=== PATIENT | female | born 1935 | race Caucasian/White ===

== ENCOUNTER 2018-04-14 18:52 | Inpatient (IN) | payer MEDICARE, OTHER ==
[~2018-04-14] VITALS: Ht 157.5 cm; Wt 59.0 kg
[2018-04-14 20:13] LABS: BASOPHILS % (AUTO) 0.3 % (0-1); EOSINOPHILS # (AUTO) 0.1 X10'3 (0-0.9); EOSINOPHILS % (AUTO) 1.3 % (0-6); HEMATOCRIT 40.6 % (35.0-45.0); HEMOGLOBIN 13.4 g/dl (12.0-16.0); LYMPHOCYTES # (AUTO) 0.4 X10'3 (1.1-4.8); LYMPHOCYTES % (AUTO) 4.3 % (21-51); MEAN CORPUSCULAR HEMOGLOBIN 30.2 PG (27.0-31.0); MEAN CORPUSCULAR VOLUME 91.5 FL (78-98); MEAN PLATELET VOLUME 9.1 FL (7.4-10.4); MONOCYTES # (AUTO) 0.3 X10'3 (0-0.9); MONOCYTES % (AUTO) 3.7 % (2-12); NEUTROPHILS # (AUTO) 7.9 X10'3 (1.8-7.7); NEUTROPHILS % (AUTO) 90.4 % (42-75); PLATELET COUNT 226 X10'3 (140-440); RED BLOOD COUNT 4.44 X10'6 (4.20-5.60); RED CELL DISTRIBUTION WIDTH 14.8 % (11.5-14.5); WHITE BLOOD COUNT 8.8 X10'3 (4.5-11.0)
[2018-04-14] MEDS ORDERED: albuterol 2.5 MG/3 ML nebule CONTNEB PRN (20:20)
[2018-04-14] MEDS ORDERED: methylPREDNISolone sod succ 125mg/2ml vial IV ONE (20:20)
[2018-04-14 20:29] LABS: ALANINE AMINOTRANSFERASE 30 U/L (12-78); ALBUMIN/GLOBULIN RATIO 1.3 (1.1-1.5); ALKALINE PHOSPHATASE 55 IU/L (46-116); ANION GAP 11 (8-16); ASPARTATE AMINO TRANSFERASE 20 U/L (10-37); BILIRUBIN,TOTAL 0.8 MG/DL (0.1-1.0); BLOOD UREA NITROGEN 15 MG/DL (7-18); BUN/CREATININE RATIO 13.6 (6.6-38.0); CHLORIDE 104 MMOL/L (99-107); GLUCOSE 142 MG/DL (70-104); POTASSIUM 4.3 MMOL/L (3.5-5.1); SODIUM 142 MMOL/L (135-145); TOTAL CARBON DIOXIDE 26.8 MMOL/L (24-32); TOTAL PROTEIN 7.1 G/DL (6.4-8.2); eGFR 47 ML/MIN
[2018-04-14 20:31] LABS: INR 0.9 INR; PARTIAL THROMBOPLASTIN TIME 21 SECONDS (22-32); PROTHROMBIN TIME 9.6 SECONDS (9.0-12.0)
[2018-04-14] MEDS ORDERED: temazepam 15mg capsule PO PRN (21:00)
[2018-04-14 21:07] LABS: MAGNESIUM 2.1 MG/DL (1.5-2.4)
[2018-04-14 21:30] LABS: ABG BASE EXCESS 3.6 mmol/L (-2.0-3.0); ABG HCO3 27.3 mmol/L (22.0-26.0); ABG OXYGEN SATURATION 99.2 % (95-98); ABG PCO2 (T) 38.7 mmHg (32.0-45.0); ABG PH (T) 7.467 (7.350-7.450); ABG PO2 (T) 210.2 mmHg (83-108); ALLEN'S TEST Positive; FCOHb 0.3 % (0.5-1.5); FLOW 10 L/min; FMetHb 0.1 % (0.3-1.12); FO2Hb 98.8 % (94-100); PATIENT TEMPERATURE 37.3; TOTAL HEMOGLOBIN 13.2 G/dl (12.0-16.0)
[2018-04-14 21:59] LABS: CLARITY,URINE CLEAR (Clear); COLOR,URINE YELLOW (Yellow); GLUCOSE, URINE NEGATIVE (Neg); KETONES,URINE NEGATIVE (Neg); LEUKOCYTE ESTERASE ,URINE TRACE (Neg); NITRITES, URINE NEGATIVE (Neg); OCCULT BLOOD,URINE NEGATIVE (Neg); PH,URINE 6.5 (4.8-8.0); PROTEIN,URINE NEGATIVE (Neg); UROBILINOGEN,URINE 0.2 E.U/dL (0.2-1.0)
[2018-04-14 22:11] LABS: UA COLLECTION TYPE CLN CATCH MIDSTREAM
[2018-04-14 22:13] LABS: RBC,URINE NONE SEEN /HPF (0-2)
[2018-04-14 22:14] LABS: BACTERIA,URINE FEW /HPF (Neg); SQUAMOUS EPITHELIAL CELL,UR FEW /LPF (FEW); TRANSITIONAL EPI CELLS,URINE FEW /HPF; WBC CLUMPS,URINE FEW /HPF (NEGATIVE); WBC,URINE 0-4 /HPF (0-4)
[2018-04-14] MEDS ORDERED: LORazepam 2 mg/ml vial IV ONE (22:20)
[2018-04-14] MEDS ORDERED: PRED1TAB PO (22:38)
[2018-04-14] MEDS ORDERED: TIOT18CA3 (22:38)
[2018-04-14] MEDS ORDERED: ALB0.5UD IH (22:38)
[2018-04-14] MEDS ORDERED: BUDE10.2 INH (22:38)
[2018-04-14] MEDS ORDERED: DILT60CA2 (22:38)
[2018-04-14] MEDS ORDERED: OMEP20TA23 PO (22:38)
[2018-04-14] MEDS ORDERED: mag hydrox/Alum hydrox/simeth 30ml oral suspension PO STA (22:45)
[2018-04-14] MEDS ORDERED: HYDROcodone/acetaminophen 10/325mg tab PO PRN (23:05)
[2018-04-14] MEDS ORDERED: acetaminophen 325mg tablet PO PRN ×2 (23:05)
[2018-04-14] MEDS ORDERED: HYDROcodone/acetaminophen 5mg/325mg tablet PO PRN (23:05)
[2018-04-14 23:20] VITALS: BP 105/70
[2018-04-14] MEDS: normal saline 1000ml 1,000 ML IV SCH (23:59)
[2018-04-15] MEDS: mag hydrox/Alum hydrox/simeth 30ml oral suspension PO PRN ×2 (00:39→04:48)
[2018-04-15 04:30] VITALS: BP 148/88
[2018-04-15 06:43] LABS: ALBUMIN 3.1 G/DL (3.4-5.0); ANION GAP 10 (8-16); BLOOD UREA NITROGEN 16 MG/DL (7-18); BUN/CREATININE RATIO 17.2 (6.6-38.0); CALCIUM 8.4 MG/DL (8.5-10.1); CHLORIDE 105 MMOL/L (99-107); CREATININE 0.93 MG/DL (0.40-0.90); GLUCOSE 161 MG/DL (70-104); POTASSIUM 4.3 MMOL/L (3.5-5.1); SODIUM 143 MMOL/L (135-145); TOTAL CARBON DIOXIDE 28.3 MMOL/L (24-32); eGFR 58 ML/MIN
[2018-04-15 06:48] LABS: BASOPHILS % (AUTO) 0 % (0-1); EOSINOPHILS % (AUTO) 0.5 % (0-6); HEMATOCRIT 35.6 % (35.0-45.0); HEMOGLOBIN 11.8 g/dl (12.0-16.0); LYMPHOCYTES # (AUTO) 0.1 X10'3 (1.1-4.8); MEAN CORPUSCULAR HEMOGLOBIN 30.1 PG (27.0-31.0); MEAN CORPUSCULAR HGB CONC 33.1 % (33.0-36.5); MEAN CORPUSCULAR VOLUME 91.1 FL (78-98); MEAN PLATELET VOLUME 8.7 FL (7.4-10.4); MONOCYTES % (AUTO) 0.6 % (2-12); NEUTROPHILS # (AUTO) 6.9 X10'3 (1.8-7.7); NEUTROPHILS % (AUTO) 96.9 % (42-75); PLATELET COUNT 176 X10'3 (140-440); RED BLOOD COUNT 3.91 X10'6 (4.20-5.60); RED CELL DISTRIBUTION WIDTH 14.6 % (11.5-14.5); WHITE BLOOD COUNT 7.1 X10'3 (4.5-11.0)
[2018-04-15 07:00] VITALS: BP 128/69
[2018-04-15] MEDS: budesonide 0.5mg/2ml UD nebule IH SCH ×2 (07:11→19:50)
[2018-04-15] MEDS: albuterol 2.5 MG/3 ML nebule NEB SCH ×4 (07:11→19:50)
[2018-04-15] MEDS ORDERED: enoxaparin 40mg/0.4ml syringe SUBCUT SCH (08:00)
[2018-04-15] MEDS ORDERED: non-formulary drug (Budesonide/Formoterol Fumarate (Symbicort 160-4.5 Mcg Inhaler) 2 PUFFS INH SCH (08:00)
[2018-04-15] MEDS: azithromycin 250mg tablet PO SCH (09:07)
[2018-04-15] MEDS: pantoprazole 40mg Tablet.DR PO SCH (09:07)
[2018-04-15] MEDS: normal saline 1000ml 1,000 ML IV SCH (09:23)
[2018-04-15] MEDS ORDERED: pneumococcal 23-VAL P-sac vacc 25 mcg/0.5ml vial IMVAC ONE (10:00)
[2018-04-15 11:00] VITALS: BP 132/68
[2018-04-15 18:30] VITALS: BP 130/72
[2018-04-15] MEDS: methylPREDNISolone sod succ 125mg/2ml vial IV SCH (19:36)
[2018-04-15] MEDS: lactobacillus rhamnosus 10,000 MMU CELLS/CAPSULE PO SCH (19:37)
[2018-04-15] MEDS: diltiazem SR 60mg capsule (twice daily) PO SCH ×2 (19:43→21:49)
[2018-04-15 20:25] LABS: ABG OXYGEN SATURATION 98.4 % (95-98); ABG PCO2 (T) 78.3 mmHg (32.0-45.0); ABG PH (T) 7.154 (7.350-7.450); ABG PO2 (T) 144.8 mmHg (83-108); FCOHb 0.1 % (0.5-1.5); FMetHb 0.4 % (0.3-1.12); FO2Hb 97.9 % (94-100); PATIENT TEMPERATURE 36.7; RESPIRATORY RATE (OBSERVED) 24 b/min; TOTAL HEMOGLOBIN 14.7 G/dl (12.0-16.0)
[2018-04-15 20:31] LABS: BASOPHILS % (AUTO) 0.2 % (0-1); EOSINOPHILS # (AUTO) 0.1 X10'3 (0-0.9); EOSINOPHILS % (AUTO) 0.8 % (0-6); HEMATOCRIT 42.3 % (35.0-45.0); HEMOGLOBIN 13.9 g/dl (12.0-16.0); LYMPHOCYTES # (AUTO) 0.8 X10'3 (1.1-4.8); LYMPHOCYTES % (AUTO) 5.4 % (21-51); MEAN CORPUSCULAR HGB CONC 32.9 % (33.0-36.5); MEAN CORPUSCULAR VOLUME 91.4 FL (78-98); MEAN PLATELET VOLUME 8.4 FL (7.4-10.4); MONOCYTES # (AUTO) 1.1 X10'3 (0-0.9); MONOCYTES % (AUTO) 6.9 % (2-12); NEUTROPHILS # (AUTO) 13.3 X10'3 (1.8-7.7); NEUTROPHILS % (AUTO) 86.7 % (42-75); PLATELET COUNT 236 X10'3 (140-440); RED BLOOD COUNT 4.63 X10'6 (4.20-5.60); RED CELL DISTRIBUTION WIDTH 14.7 % (11.5-14.5); WHITE BLOOD COUNT 15.4 X10'3 (4.5-11.0)
[2018-04-15 20:41] LABS: ABG HCO3 22.3 mmol/L (22.0-26.0); ABG OXYGEN SATURATION 99.4 % (95-98); ABG PCO2 (T) 44.2 mmHg (32.0-45.0); ABG PH (T) 7.318 (7.350-7.450); ABG PO2 (T) 269.3 mmHg (83-108); FCOHb 0.3 % (0.5-1.5); FMetHb 0.2 % (0.3-1.12); FO2Hb 98.9 % (94-100); PATIENT TEMPERATURE 36.7; RESPIRATORY RATE 18 b/min; RESPIRATORY RATE (OBSERVED) 21 b/min; TOTAL HEMOGLOBIN 14.1 G/dl (12.0-16.0)
[2018-04-15 20:54] LABS: ALBUMIN 3.7 G/DL (3.4-5.0); ANION GAP 12 (8-16); BLOOD UREA NITROGEN 18 MG/DL (7-18); BUN/CREATININE RATIO 15.1 (6.6-38.0); CALCIUM 8.4 MG/DL (8.5-10.1); CHLORIDE 105 MMOL/L (99-107); CREATININE 1.19 MG/DL (0.40-0.90); GLUCOSE 171 MG/DL (70-104); POTASSIUM 5.5 MMOL/L (3.5-5.1); SODIUM 143 MMOL/L (135-145); TOTAL CARBON DIOXIDE 25.9 MMOL/L (24-32); TROPONIN I 0.04 NG/ML (0.0-0.05); eGFR 43 ML/MIN
[2018-04-15] MEDS ORDERED: LORazepam 2 mg/ml vial IM ONE (21:35)
[2018-04-16] VITALS (9 sets, daily range): BP systolic 123–160; BP diastolic 70–99
[2018-04-16] MEDS ORDERED: LORazepam 2 mg/ml vial IV ONE ×2 (01:05→06:30)
[2018-04-16 07:04] LABS: BASOPHILS # (AUTO) 0.1 X10'3 (0-0.2); BASOPHILS % (AUTO) 0.3 % (0-1); EOSINOPHILS # (AUTO) 0.3 X10'3 (0-0.9); EOSINOPHILS % (AUTO) 1.7 % (0-6); HEMATOCRIT 39.9 % (35.0-45.0); HEMOGLOBIN 13.2 g/dl (12.0-16.0); LYMPHOCYTES # (AUTO) 0.2 X10'3 (1.1-4.8); LYMPHOCYTES % (AUTO) 1.4 % (21-51); MEAN CORPUSCULAR HEMOGLOBIN 30.2 PG (27.0-31.0); MEAN CORPUSCULAR HGB CONC 33.1 % (33.0-36.5); MEAN CORPUSCULAR VOLUME 91.4 FL (78-98); MONOCYTES # (AUTO) 0.6 X10'3 (0-0.9); MONOCYTES % (AUTO) 3.7 % (2-12); NEUTROPHILS # (AUTO) 16.4 X10'3 (1.8-7.7); NEUTROPHILS % (AUTO) 92.9 % (42-75); PLATELET COUNT 243 X10'3 (140-440); RED BLOOD COUNT 4.37 X10'6 (4.20-5.60); RED CELL DISTRIBUTION WIDTH 14.7 % (11.5-14.5); WHITE BLOOD COUNT 17.7 X10'3 (4.5-11.0)
[2018-04-16 07:16] LABS: ALBUMIN 3.5 G/DL (3.4-5.0); ANION GAP 9 (8-16); BLOOD UREA NITROGEN 20 MG/DL (7-18); BUN/CREATININE RATIO 20.6 (6.6-38.0); CALCIUM 8.7 MG/DL (8.5-10.1); CHLORIDE 104 MMOL/L (99-107); CREATININE 0.97 MG/DL (0.40-0.90); GLUCOSE 171 MG/DL (70-104); POTASSIUM 4.4 MMOL/L (3.5-5.1); SODIUM 141 MMOL/L (135-145); TOTAL CARBON DIOXIDE 27.6 MMOL/L (24-32); eGFR 55 ML/MIN
[2018-04-16] MEDS: budesonide 0.5mg/2ml UD nebule IH SCH ×2 (07:39→19:12)
[2018-04-16] MEDS: albuterol 2.5 MG/3 ML nebule NEB SCH ×4 (07:39→19:12)
[2018-04-16] MEDS: pantoprazole 40mg Tablet.DR PO SCH (08:00)
[2018-04-16] MEDS: lactobacillus rhamnosus 10,000 MMU CELLS/CAPSULE PO SCH ×2 (08:00→20:50)
[2018-04-16] MEDS: azithromycin 250mg tablet PO SCH (08:00)
[2018-04-16] MEDS: diltiazem SR 60mg capsule (twice daily) PO SCH (08:00)
[2018-04-16] MEDS: methylPREDNISolone sod succ 125mg/2ml vial IV SCH ×2 (08:25→20:44)
[2018-04-16] MEDS: enoxaparin 30mg/0.3ml syringe SUBCUT SCH (08:26)
[2018-04-16 10:15] LABS: ABG BASE EXCESS 0.4 mmol/L (-2.0-3.0); ABG HCO3 27.1 mmol/L (22.0-26.0); ABG OXYGEN SATURATION 98.1 % (95-98); ABG PCO2 (T) 51.3 mmHg (32.0-45.0); ABG PO2 (T) 110.5 mmHg (83-108); FCOHb 0.3 % (0.5-1.5); FMetHb 0.2 % (0.3-1.12); FO2Hb 97.6 % (94-100); RESPIRATORY RATE 16 b/min; RESPIRATORY RATE (OBSERVED) 25 b/min; TOTAL HEMOGLOBIN 14.5 G/dl (12.0-16.0)
[2018-04-16] MEDS: pantoprazole 40 MG vial IV SCH (10:49)
[2018-04-16] MEDS: diltiazem 5mg/ml 5ml inj. IV SCH ×3 (10:49→20:46)
[2018-04-16] MEDS: morphine 10mg/0.5ml (conc. morphine) oral syringe PO PRN ×5 (11:29→23:59)
[2018-04-17] VITALS (13 sets, daily range): BP systolic 123–147; BP diastolic 66–98
[2018-04-17] MEDS: albuterol 2.5 MG/3 ML nebule NEB PRN (01:28)
[2018-04-17] MEDS: LORazepam 2 mg/ml vial IV PRN ×2 (01:32→15:24)
[2018-04-17] MEDS: diltiazem 5mg/ml 5ml inj. IV SCH ×4 (02:19→19:54)
[2018-04-17 06:49] LABS: BASOPHILS % (AUTO) 0 % (0-1); EOSINOPHILS # (AUTO) 0.3 X10'3 (0-0.9); EOSINOPHILS % (AUTO) 1.9 % (0-6); HEMATOCRIT 38.2 % (35.0-45.0); HEMOGLOBIN 12.8 g/dl (12.0-16.0); LYMPHOCYTES # (AUTO) 0.2 X10'3 (1.1-4.8); LYMPHOCYTES % (AUTO) 1.6 % (21-51); MEAN CORPUSCULAR HEMOGLOBIN 30.3 PG (27.0-31.0); MEAN CORPUSCULAR HGB CONC 33.5 % (33.0-36.5); MEAN CORPUSCULAR VOLUME 90.3 FL (78-98); MEAN PLATELET VOLUME 8.8 FL (7.4-10.4); MONOCYTES # (AUTO) 0.8 X10'3 (0-0.9); MONOCYTES % (AUTO) 5.5 % (2-12); PLATELET COUNT 203 X10'3 (140-440); RED BLOOD COUNT 4.22 X10'6 (4.20-5.60); RED CELL DISTRIBUTION WIDTH 14.3 % (11.5-14.5); WHITE BLOOD COUNT 14.3 X10'3 (4.5-11.0)
[2018-04-17 06:56] LABS: ALBUMIN 2.9 G/DL (3.4-5.0); ANION GAP 6 (8-16); BLOOD UREA NITROGEN 23 MG/DL (7-18); BUN/CREATININE RATIO 29.1 (6.6-38.0); CALCIUM 8.3 MG/DL (8.5-10.1); CHLORIDE 106 MMOL/L (99-107); CREATININE 0.79 MG/DL (0.40-0.90); GLUCOSE 151 MG/DL (70-104); POTASSIUM 4.4 MMOL/L (3.5-5.1); SODIUM 143 MMOL/L (135-145); TOTAL CARBON DIOXIDE 30.6 MMOL/L (24-32); eGFR 70 ML/MIN
[2018-04-17] MEDS: albuterol 2.5 MG/3 ML nebule NEB SCH (07:26)
[2018-04-17] MEDS: budesonide 0.5mg/2ml UD nebule IH SCH ×2 (07:26→20:11)
[2018-04-17] MEDS: lactobacillus rhamnosus 10,000 MMU CELLS/CAPSULE PO SCH ×2 (07:28→19:54)
[2018-04-17] MEDS: pantoprazole 40 MG vial IV SCH (07:34)
[2018-04-17] MEDS: methylPREDNISolone sod succ 125mg/2ml vial IV SCH ×2 (07:35→19:54)
[2018-04-17] MEDS: enoxaparin 30mg/0.3ml syringe SUBCUT SCH (07:35)
[2018-04-17] MEDS: normal saline 1000ml 1,000 ML IV SCH ×2 (10:33→19:55)
[2018-04-17] MEDS: ipratropium/albuterol 3ml nebule NEB SCH ×2 (15:30→20:11)
[2018-04-17 20:41] LABS: ABG BASE EXCESS 4.1 mmol/L (-2.0-3.0); ABG HCO3 28.2 mmol/L (22.0-26.0); ABG OXYGEN SATURATION 96.8 % (95-98); ABG PCO2 (T) 40.1 mmHg (32.0-45.0); ABG PH (T) 7.465 (7.350-7.450); ABG PO2 (T) 83.3 mmHg (83-108); ALLEN'S TEST Positive; FCOHb 0.6 % (0.5-1.5); FMetHb 0.1 % (0.3-1.12); FO2Hb 96.1 % (94-100); MINUTE VOLUME 11 L/min; PATIENT TEMPERATURE 36.9; RESPIRATORY RATE 16 b/min; RESPIRATORY RATE (OBSERVED) 16 b/min; TOTAL HEMOGLOBIN 13.5 G/dl (12.0-16.0)
[2018-04-18] VITALS (11 sets, daily range): BP systolic 109–158; BP diastolic 72–103
[2018-04-18] MEDS: LORazepam 2 mg/ml vial IV PRN ×3 (00:07→21:02)
[2018-04-18] MEDS: diltiazem 5mg/ml 5ml inj. IV SCH ×4 (02:00→20:34)
[2018-04-18] MEDS: ipratropium/albuterol 3ml nebule NEB SCH ×4 (02:18→20:39)
[2018-04-18] MEDS: normal saline 1000ml 1,000 ML IV SCH ×3 (05:56→18:57)
[2018-04-18 05:58] LABS: ALBUMIN 2.6 G/DL (3.4-5.0); ANION GAP 8 (8-16); BLOOD UREA NITROGEN 26 MG/DL (7-18); BUN/CREATININE RATIO 36.6 (6.6-38.0); CALCIUM 7.8 MG/DL (8.5-10.1); CHLORIDE 108 MMOL/L (99-107); CREATININE 0.71 MG/DL (0.40-0.90); GLUCOSE 140 MG/DL (70-104); POTASSIUM 4.1 MMOL/L (3.5-5.1); SODIUM 145 MMOL/L (135-145); TOTAL CARBON DIOXIDE 29.3 MMOL/L (24-32); eGFR 79 ML/MIN
[2018-04-18 07:38] LABS: HEMOGLOBIN 12.4 g/dl (12.0-16.0); RED BLOOD COUNT 3.95 X10'6 (4.20-5.60); WHITE BLOOD COUNT 10.9 X10'3 (4.5-11.0)
[2018-04-18 07:39] LABS: BASOPHILS % (AUTO) 0.2 % (0-1); EOSINOPHILS % (AUTO) 0 % (0-6); HEMATOCRIT 36.2 % (35.0-45.0); LYMPHOCYTES # (AUTO) 0.2 X10'3 (1.1-4.8); LYMPHOCYTES % (AUTO) 1.8 % (21-51); MEAN CORPUSCULAR HEMOGLOBIN 31.5 PG (27.0-31.0); MONOCYTES # (AUTO) 0.3 X10'3 (0-0.9); MONOCYTES % (AUTO) 3.1 % (2-12); NEUTROPHILS # (AUTO) 10.4 X10'3 (1.8-7.7); NEUTROPHILS % (AUTO) 94.9 % (42-75); PLATELET COUNT 157 X10'3 (140-440); RED CELL DISTRIBUTION WIDTH 13.3 % (11.5-14.5)
[2018-04-18 07:40] LABS: MEAN CORPUSCULAR HGB CONC 34.4 % (33.0-36.5); MEAN CORPUSCULAR VOLUME 91.5 FL (78-98)
[2018-04-18] MEDS: pantoprazole 40 MG vial IV SCH (07:53)
[2018-04-18] MEDS: budesonide 0.5mg/2ml UD nebule IH SCH ×2 (07:53→20:40)
[2018-04-18] MEDS: methylPREDNISolone sod succ 125mg/2ml vial IV SCH ×2 (07:56→20:34)
[2018-04-18] MEDS: enoxaparin 30mg/0.3ml syringe SUBCUT SCH (07:58)
[2018-04-18] MEDS: lactobacillus rhamnosus 10,000 MMU CELLS/CAPSULE PO SCH ×2 (08:00→20:32)
[2018-04-18] MEDS: albuterol 2.5 MG/3 ML nebule NEB PRN (12:46)
[2018-04-18] MEDS: Protein Shake (high protein) 240ml (8oz) cup PO SCH ×2 (13:00→18:02)
[2018-04-18] MEDS ORDERED: lactose-reduced food (Ensure Enlive) - 237ml bottle PO SCH (18:00)
[2018-04-18] MEDS: doxycycline inj 100 MG in normal saline 100ml IV soln 100 ML IV SCH ×2 (18:57→19:04)
[2018-04-19] MEDS: ipratropium/albuterol 3ml nebule NEB SCH ×4 (01:55→21:32)
[2018-04-19 02:00] VITALS: BP 148/99
[2018-04-19] MEDS: diltiazem 5mg/ml 5ml inj. IV SCH ×3 (02:00→14:22)
[2018-04-19] MEDS: morphine 10mg/0.5ml (conc. morphine) oral syringe PO PRN ×2 (05:38→20:42)
[2018-04-19 06:00] VITALS: BP 155/108
[2018-04-19] MEDS: LORazepam 2 mg/ml vial IV PRN ×2 (06:55→16:22)
[2018-04-19] MEDS: normal saline 1000ml 1,000 ML IV SCH (06:56)
[2018-04-19 07:00] LABS: BASOPHILS % (AUTO) 0.2 % (0-1); EOSINOPHILS % (AUTO) 0.1 % (0-6); HEMATOCRIT 38.1 % (35.0-45.0); HEMOGLOBIN 13.2 g/dl (12.0-16.0); LYMPHOCYTES # (AUTO) 0.2 X10'3 (1.1-4.8); LYMPHOCYTES % (AUTO) 1.4 % (21-51); MEAN CORPUSCULAR HEMOGLOBIN 31.1 PG (27.0-31.0); MEAN CORPUSCULAR HGB CONC 34.6 % (33.0-36.5); MEAN PLATELET VOLUME 9.3 FL (7.4-10.4); MONOCYTES # (AUTO) 0.4 X10'3 (0-0.9); MONOCYTES % (AUTO) 3.3 % (2-12); NEUTROPHILS # (AUTO) 10.3 X10'3 (1.8-7.7); PLATELET COUNT 166 X10'3 (140-440); RED BLOOD COUNT 4.23 X10'6 (4.20-5.60); RED CELL DISTRIBUTION WIDTH 13.3 % (11.5-14.5); WHITE BLOOD COUNT 10.9 X10'3 (4.5-11.0)
[2018-04-19 07:15] LABS: ALBUMIN 2.7 G/DL (3.4-5.0); ANION GAP 8 (8-16); BLOOD UREA NITROGEN 26 MG/DL (7-18); BUN/CREATININE RATIO 35.6 (6.6-38.0); CALCIUM 8.1 MG/DL (8.5-10.1); CHLORIDE 110 MMOL/L (99-107); CREATININE 0.73 MG/DL (0.40-0.90); GLUCOSE 157 MG/DL (70-104); POTASSIUM 3.8 MMOL/L (3.5-5.1); SODIUM 146 MMOL/L (135-145); TOTAL CARBON DIOXIDE 27.8 MMOL/L (24-32); eGFR 76 ML/MIN
[2018-04-19] MEDS: Protein Shake (high protein) 240ml (8oz) cup PO SCH ×3 (07:56→18:36)
[2018-04-19] MEDS: methylPREDNISolone sod succ 125mg/2ml vial IV SCH ×2 (08:02→19:52)
[2018-04-19] MEDS: pantoprazole 40 MG vial IV SCH (08:04)
[2018-04-19] MEDS: doxycycline inj 100 MG in normal saline 100ml IV soln 100 ML IV SCH ×2 (08:06→19:52)
[2018-04-19] MEDS: lactobacillus rhamnosus 10,000 MMU CELLS/CAPSULE PO SCH ×2 (08:08→19:52)
[2018-04-19] MEDS: enoxaparin 40mg/0.4ml syringe SUBCUT SCH (08:08)
[2018-04-19] MEDS: budesonide 0.5mg/2ml UD nebule IH SCH ×2 (09:16→21:32)
[2018-04-19 11:00] VITALS: BP 134/89
[2018-04-19] MEDS: lactose-reduced food (Ensure Enlive) - 237ml bottle PO SCH ×2 (13:00→18:00)
[2018-04-19 15:00] VITALS: BP 126/85
[2018-04-19] MEDS: montelukast 10mg tablet PO SCH (16:58)
[2018-04-19] MEDS: loratadine 10mg tablet PO SCH (16:58)
[2018-04-19 19:00] VITALS: BP 128/74
[2018-04-19] MEDS: diltiazem SR 60mg capsule (twice daily) PO SCH (19:52)
[2018-04-19 23:00] VITALS: BP 143/89
[2018-04-20] MEDS: mag hydrox/Alum hydrox/simeth 30ml oral suspension PO PRN ×2 (00:15→21:44)
[2018-04-20 03:00] VITALS: BP 115/76
[2018-04-20] MEDS: ipratropium/albuterol 3ml nebule NEB SCH ×4 (03:01→20:20)
[2018-04-20] MEDS: LORazepam 2 mg/ml vial IV PRN ×3 (03:55→21:08)
[2018-04-20 06:00] VITALS: BP 108/81
[2018-04-20] MEDS: loratadine 10mg tablet PO SCH (07:44)
[2018-04-20] MEDS: diltiazem SR 60mg capsule (twice daily) PO SCH ×2 (07:44→19:57)
[2018-04-20] MEDS: doxycycline inj 100 MG in normal saline 100ml IV soln 100 ML IV SCH ×2 (07:44→19:57)
[2018-04-20] MEDS: lactobacillus rhamnosus 10,000 MMU CELLS/CAPSULE PO SCH ×2 (07:44→19:57)
[2018-04-20] MEDS: montelukast 10mg tablet PO SCH (07:44)
[2018-04-20] MEDS: budesonide 0.5mg/2ml UD nebule IH SCH ×2 (07:45→20:20)
[2018-04-20] MEDS: enoxaparin 40mg/0.4ml syringe SUBCUT SCH (07:46)
[2018-04-20] MEDS: pantoprazole 40 MG vial IV SCH (07:46)
[2018-04-20] MEDS: methylPREDNISolone sod succ 125mg/2ml vial IV SCH ×2 (07:46→19:57)
[2018-04-20] MEDS: Protein Shake (high protein) 240ml (8oz) cup PO SCH ×3 (07:46→18:41)
[2018-04-20] MEDS: lactose-reduced food (Ensure Enlive) - 237ml bottle PO SCH ×3 (08:00→18:41)
[2018-04-20 10:21] LABS: ALANINE AMINOTRANSFERASE 45 U/L (12-78); ALBUMIN 2.7 G/DL (3.4-5.0); ALBUMIN/GLOBULIN RATIO 0.9 (1.1-1.5); ALKALINE PHOSPHATASE 52 IU/L (46-116); ANION GAP 9 (8-16); ASPARTATE AMINO TRANSFERASE 19 U/L (10-37); BLOOD UREA NITROGEN 26 MG/DL (7-18); BUN/CREATININE RATIO 34.7 (6.6-38.0); CALCIUM 7.9 MG/DL (8.5-10.1); CHLORIDE 109 MMOL/L (99-107); CREATININE 0.75 MG/DL (0.40-0.90); GLUCOSE 210 MG/DL (70-104); SODIUM 145 MMOL/L (135-145); TOTAL CARBON DIOXIDE 26.8 MMOL/L (24-32); TOTAL PROTEIN 5.6 G/DL (6.4-8.2); eGFR 74 ML/MIN
[2018-04-20 10:56] LABS: BASOPHILS % (AUTO) 0.1 % (0-1); EOSINOPHILS % (AUTO) 0 % (0-6); HEMATOCRIT 39.5 % (35.0-45.0); HEMOGLOBIN 13.7 g/dl (12.0-16.0); LYMPHOCYTES # (AUTO) 0.1 X10'3 (1.1-4.8); LYMPHOCYTES % (AUTO) 0.7 % (21-51); MEAN CORPUSCULAR HEMOGLOBIN 31.1 PG (27.0-31.0); MEAN CORPUSCULAR HGB CONC 34.6 % (33.0-36.5); MEAN CORPUSCULAR VOLUME 89.8 FL (78-98); MEAN PLATELET VOLUME 9.4 FL (7.4-10.4); MONOCYTES # (AUTO) 0.6 X10'3 (0-0.9); MONOCYTES % (AUTO) 5.1 % (2-12); NEUTROPHILS # (AUTO) 11.4 X10'3 (1.8-7.7); NEUTROPHILS % (AUTO) 94.1 % (42-75); PLATELET COUNT 182 X10'3 (140-440); RED BLOOD COUNT 4.39 X10'6 (4.20-5.60); RED CELL DISTRIBUTION WIDTH 13.8 % (11.5-14.5); WHITE BLOOD COUNT 12.1 X10'3 (4.5-11.0)
[2018-04-20 11:00] VITALS: BP 131/86
[2018-04-20 15:00] VITALS: BP 117/89
[2018-04-20] MEDS: albuterol 2.5 MG/3 ML nebule NEB PRN (17:31)
[2018-04-20 19:00] VITALS: BP 131/70
[2018-04-20] MEDS: morphine 10mg/0.5ml (conc. morphine) oral syringe PO PRN (19:57)
[2018-04-20 23:00] VITALS: BP 135/85
[2018-04-21] MEDS: ipratropium/albuterol 3ml nebule NEB SCH ×4 (02:42→20:18)
[2018-04-21 03:00] VITALS: BP 120/69
[2018-04-21 07:00] VITALS: BP 120/85
[2018-04-21] MEDS: Protein Shake (high protein) 240ml (8oz) cup PO SCH ×3 (08:00→18:41)
[2018-04-21] MEDS: budesonide 0.5mg/2ml UD nebule IH SCH ×2 (08:00→20:18)
[2018-04-21] MEDS: LORazepam 2 mg/ml vial IV PRN ×3 (08:35→22:10)
[2018-04-21] MEDS: pantoprazole 40 MG vial IV SCH (08:39)
[2018-04-21] MEDS: methylPREDNISolone sod succ 125mg/2ml vial IV SCH ×2 (08:46→20:30)
[2018-04-21] MEDS: montelukast 10mg tablet PO SCH (08:50)
[2018-04-21] MEDS: loratadine 10mg tablet PO SCH (08:51)
[2018-04-21] MEDS: diltiazem SR 60mg capsule (twice daily) PO SCH ×2 (08:51→20:30)
[2018-04-21] MEDS: lactobacillus rhamnosus 10,000 MMU CELLS/CAPSULE PO SCH ×2 (08:51→20:30)
[2018-04-21] MEDS: enoxaparin 40mg/0.4ml syringe SUBCUT SCH (08:53)
[2018-04-21] MEDS: lactose-reduced food (Ensure Enlive) - 237ml bottle PO SCH ×3 (08:56→18:41)
[2018-04-21] MEDS: doxycycline inj 100 MG in normal saline 100ml IV soln 100 ML IV SCH ×2 (08:59→20:30)
[2018-04-21 11:00] VITALS: BP 119/74
[2018-04-21 15:00] VITALS: BP 133/85
[2018-04-21] MEDS: magnesium hydroxide 30ml (MOM) UD suspension PO PRN (18:41)
[2018-04-21 19:00] VITALS: BP 137/81
[2018-04-21 22:10] LABS: ABG BASE EXCESS 3.8 mmol/L (-2.0-3.0); ABG HCO3 28.2 mmol/L (22.0-26.0); ABG OXYGEN SATURATION 94.7 % (95-98); ABG PH (T) 7.453 (7.350-7.450); ABG PO2 (T) 66.2 mmHg (83-108); ALLEN'S TEST Positive; FCOHb 0.5 % (0.5-1.5); FLOW 3 L/min; FMetHb 0.1 % (0.3-1.12); FO2Hb 94.1 % (94-100); PATIENT TEMPERATURE 36.5; TOTAL HEMOGLOBIN 13.9 G/dl (12.0-16.0)
[2018-04-21 23:00] VITALS: BP 130/85
[2018-04-22] MEDS: ipratropium/albuterol 3ml nebule NEB SCH ×4 (02:33→20:49)
[2018-04-22 03:00] VITALS: BP 134/75
[2018-04-22] MEDS: LORazepam 2 mg/ml vial IV PRN ×2 (04:14→13:05)
[2018-04-22 05:31] LABS: ALBUMIN 2.7 G/DL (3.4-5.0); ANION GAP 7 (8-16); BLOOD UREA NITROGEN 26 MG/DL (7-18); BUN/CREATININE RATIO 35.6 (6.6-38.0); CALCIUM 8.6 MG/DL (8.5-10.1); CHLORIDE 108 MMOL/L (99-107); CREATININE 0.73 MG/DL (0.40-0.90); GLUCOSE 174 MG/DL (70-104); POTASSIUM 4.4 MMOL/L (3.5-5.1); SODIUM 145 MMOL/L (135-145); TOTAL CARBON DIOXIDE 30.3 MMOL/L (24-32); eGFR 76 ML/MIN
[2018-04-22 05:35] LABS: BASOPHILS % (AUTO) 0 % (0-1); EOSINOPHILS % (AUTO) 0 % (0-6); HEMATOCRIT 40.1 % (35.0-45.0); HEMOGLOBIN 13.7 g/dl (12.0-16.0); LYMPHOCYTES # (AUTO) 0.1 X10'3 (1.1-4.8); LYMPHOCYTES % (AUTO) 0.6 % (21-51); MEAN CORPUSCULAR HEMOGLOBIN 31.1 PG (27.0-31.0); MEAN CORPUSCULAR VOLUME 91.4 FL (78-98); MEAN PLATELET VOLUME 9.9 FL (7.4-10.4); MONOCYTES # (AUTO) 0.5 X10'3 (0-0.9); NEUTROPHILS # (AUTO) 16.7 X10'3 (1.8-7.7); NEUTROPHILS % (AUTO) 96.4 % (42-75); PLATELET COUNT 175 X10'3 (140-440); RED BLOOD COUNT 4.39 X10'6 (4.20-5.60); RED CELL DISTRIBUTION WIDTH 13.6 % (11.5-14.5); WHITE BLOOD COUNT 17.3 X10'3 (4.5-11.0)
[2018-04-22 06:00] VITALS: BP 132/78
[2018-04-22] MEDS: budesonide 0.5mg/2ml UD nebule IH SCH ×2 (07:40→20:49)
[2018-04-22] MEDS: Protein Shake (high protein) 240ml (8oz) cup PO SCH ×3 (08:00→18:00)
[2018-04-22] MEDS: lactose-reduced food (Ensure Enlive) - 237ml bottle PO SCH ×4 (08:00→15:00)
[2018-04-22] MEDS: diltiazem SR 60mg capsule (twice daily) PO SCH ×2 (08:03→20:58)
[2018-04-22] MEDS: loratadine 10mg tablet PO SCH (08:03)
[2018-04-22] MEDS: montelukast 10mg tablet PO SCH (08:03)
[2018-04-22] MEDS: pantoprazole 40 MG vial IV SCH (08:03)
[2018-04-22] MEDS: methylPREDNISolone sod succ 125mg/2ml vial IV SCH ×2 (08:03→20:58)
[2018-04-22] MEDS: lactobacillus rhamnosus 10,000 MMU CELLS/CAPSULE PO SCH ×2 (08:03→20:58)
[2018-04-22] MEDS: doxycycline inj 100 MG in normal saline 100ml IV soln 100 ML IV SCH ×2 (08:04→20:59)
[2018-04-22] MEDS: enoxaparin 40mg/0.4ml syringe SUBCUT SCH (08:04)
[2018-04-22 11:00] VITALS: BP 126/64
[2018-04-22 15:31] VITALS: BP 139/85
[2018-04-22] MEDS: morphine 10mg/0.5ml (conc. morphine) oral syringe PO PRN (16:41)
[2018-04-22 18:00] VITALS: BP 159/99
[2018-04-22] MEDS ORDERED: iohexol 350MG/ML 100ml bottle IV ONE (19:59)
[2018-04-22] MEDS: furosemide 40mg/4ml inj IV SCH (20:58)
[2018-04-22 22:00] VITALS: BP 135/87
[2018-04-23] MEDS: albuterol 2.5 MG/3 ML nebule NEB PRN ×4 (01:25→13:27)
[2018-04-23 02:00] VITALS: BP 117/62
[2018-04-23] MEDS: LORazepam 2 mg/ml vial IV PRN ×2 (02:05→13:11)
[2018-04-23] MEDS: ipratropium/albuterol 3ml nebule NEB SCH ×4 (03:00→21:13)
[2018-04-23 03:36] LABS: BASOPHILS % (AUTO) 0.1 % (0-1); EOSINOPHILS % (AUTO) 0 % (0-6); HEMATOCRIT 44.1 % (35.0-45.0); HEMOGLOBIN 14.8 g/dl (12.0-16.0); LYMPHOCYTES # (AUTO) 0.2 X10'3 (1.1-4.8); LYMPHOCYTES % (AUTO) 0.9 % (21-51); MEAN CORPUSCULAR HEMOGLOBIN 30.4 PG (27.0-31.0); MEAN CORPUSCULAR HGB CONC 33.5 % (33.0-36.5); MEAN CORPUSCULAR VOLUME 90.6 FL (78-98); MEAN PLATELET VOLUME 9.6 FL (7.4-10.4); MONOCYTES # (AUTO) 0.9 X10'3 (0-0.9); MONOCYTES % (AUTO) 4.7 % (2-12); NEUTROPHILS # (AUTO) 17.1 X10'3 (1.8-7.7); NEUTROPHILS % (AUTO) 94.3 % (42-75); PLATELET COUNT 181 X10'3 (140-440); RED BLOOD COUNT 4.87 X10'6 (4.20-5.60); RED CELL DISTRIBUTION WIDTH 13.8 % (11.5-14.5); WHITE BLOOD COUNT 18.2 X10'3 (4.5-11.0)
[2018-04-23 03:46] LABS: ALANINE AMINOTRANSFERASE 47 U/L (12-78); ALBUMIN 2.8 G/DL (3.4-5.0); ALBUMIN/GLOBULIN RATIO 0.9 (1.1-1.5); ALKALINE PHOSPHATASE 47 IU/L (46-116); ANION GAP 8 (8-16); ASPARTATE AMINO TRANSFERASE 20 U/L (10-37); BILIRUBIN,TOTAL 1.3 MG/DL (0.1-1.0); BLOOD UREA NITROGEN 23 MG/DL (7-18); BUN/CREATININE RATIO 34.3 (6.6-38.0); CALCIUM 8.2 MG/DL (8.5-10.1); CHLORIDE 102 MMOL/L (99-107); CREATININE 0.67 MG/DL (0.40-0.90); GLUCOSE 179 MG/DL (70-104); MAGNESIUM 2.1 MG/DL (1.5-2.4); PHOSPHORUS 2.4 MG/DL (2.3-4.5); POTASSIUM 3.6 MMOL/L (3.5-5.1); SODIUM 142 MMOL/L (135-145); TOTAL CARBON DIOXIDE 32.5 MMOL/L (24-32); TOTAL PROTEIN 5.8 G/DL (6.4-8.2); eGFR 84 ML/MIN
[2018-04-23 06:00] VITALS: BP 177/70
[2018-04-23] MEDS: budesonide 0.5mg/2ml UD nebule IH SCH ×2 (07:04→21:13)
[2018-04-23] MEDS: furosemide 40mg/4ml inj IV SCH ×2 (07:47→21:20)
[2018-04-23] MEDS: methylPREDNISolone sod succ 125mg/2ml vial IV SCH (07:48)
[2018-04-23] MEDS: pantoprazole 40 MG vial IV SCH (07:48)
[2018-04-23] MEDS: doxycycline inj 100 MG in normal saline 100ml IV soln 100 ML IV SCH (07:51)
[2018-04-23] MEDS: diltiazem SR 60mg capsule (twice daily) PO SCH ×2 (07:54→20:00)
[2018-04-23] MEDS: loratadine 10mg tablet PO SCH (07:55)
[2018-04-23] MEDS: lactobacillus rhamnosus 10,000 MMU CELLS/CAPSULE PO SCH ×2 (07:57→21:15)
[2018-04-23] MEDS: montelukast 10mg tablet PO SCH (07:58)
[2018-04-23] MEDS: enoxaparin 40mg/0.4ml syringe SUBCUT SCH (07:59)
[2018-04-23] MEDS: Protein Shake (high protein) 240ml (8oz) cup PO SCH ×3 (08:25→18:33)
[2018-04-23] MEDS: morphine 10mg/0.5ml (conc. morphine) oral syringe PO PRN (08:26)
[2018-04-23 11:00] VITALS: BP 123/48
[2018-04-23] MEDS: magnesium hydroxide 30ml (MOM) UD suspension PO PRN (11:55)
[2018-04-23] MEDS: lactose-reduced food (Ensure Enlive) - 237ml bottle PO SCH ×2 (13:00→18:33)
[2018-04-23] MEDS: piperacillin/tazo 3.375gm/50ml 50 ML IV SCH ×2 (14:07→21:20)
[2018-04-23 15:00] VITALS: BP 112/70
[2018-04-23 19:00] VITALS: BP 111/75
[2018-04-23] MEDS: methylPREDNISolone sod succ/PF 40mg inj. IV SCH (21:17)
[2018-04-23 23:00] VITALS: BP 123/78
[2018-04-24] MEDS: piperacillin/tazo 3.375gm/50ml 50 ML IV SCH ×4 (02:47→19:57)
[2018-04-24 03:00] VITALS: BP 113/67
[2018-04-24] MEDS: ipratropium/albuterol 3ml nebule NEB SCH ×4 (03:05→21:26)
[2018-04-24 05:23] LABS: BASOPHILS % (AUTO) 0 % (0-1); EOSINOPHILS % (AUTO) 0 % (0-6); HEMATOCRIT 43.4 % (35.0-45.0); HEMOGLOBIN 14.7 g/dl (12.0-16.0); LYMPHOCYTES # (AUTO) 0.1 X10'3 (1.1-4.8); LYMPHOCYTES % (AUTO) 0.7 % (21-51); MEAN CORPUSCULAR HEMOGLOBIN 30.7 PG (27.0-31.0); MEAN CORPUSCULAR VOLUME 90.3 FL (78-98); MEAN PLATELET VOLUME 9.2 FL (7.4-10.4); MONOCYTES # (AUTO) 0.4 X10'3 (0-0.9); MONOCYTES % (AUTO) 2.2 % (2-12); NEUTROPHILS # (AUTO) 17.6 X10'3 (1.8-7.7); NEUTROPHILS % (AUTO) 97.1 % (42-75); PLATELET COUNT 186 X10'3 (140-440); RED CELL DISTRIBUTION WIDTH 13.5 % (11.5-14.5); WHITE BLOOD COUNT 18.1 X10'3 (4.5-11.0)
[2018-04-24 05:37] LABS: ALANINE AMINOTRANSFERASE 71 U/L (12-78); ALBUMIN 2.6 G/DL (3.4-5.0); ALBUMIN/GLOBULIN RATIO 0.9 (1.1-1.5); ALKALINE PHOSPHATASE 51 IU/L (46-116); ANION GAP 7 (8-16); ASPARTATE AMINO TRANSFERASE 28 U/L (10-37); BILIRUBIN,TOTAL 1.5 MG/DL (0.1-1.0); BLOOD UREA NITROGEN 25 MG/DL (7-18); BUN/CREATININE RATIO 27.2 (6.6-38.0); CALCIUM 7.6 MG/DL (8.5-10.1); CHLORIDE 99 MMOL/L (99-107); CREATININE 0.92 MG/DL (0.40-0.90); GLUCOSE 193 MG/DL (70-104); MAGNESIUM 2.2 MG/DL (1.5-2.4); PHOSPHORUS 3.5 MG/DL (2.3-4.5); POTASSIUM 3.3 MMOL/L (3.5-5.1); SODIUM 142 MMOL/L (135-145); TOTAL CARBON DIOXIDE 35.8 MMOL/L (24-32); TOTAL PROTEIN 5.4 G/DL (6.4-8.2); eGFR 58 ML/MIN
[2018-04-24 06:00] VITALS: BP 106/65
[2018-04-24] MEDS: methylPREDNISolone sod succ/PF 40mg inj. IV SCH (07:53)
[2018-04-24] MEDS: loratadine 10mg tablet PO SCH (07:53)
[2018-04-24] MEDS: diltiazem SR 60mg capsule (twice daily) PO SCH ×2 (07:53→19:56)
[2018-04-24] MEDS: lactobacillus rhamnosus 10,000 MMU CELLS/CAPSULE PO SCH ×2 (07:53→19:55)
[2018-04-24] MEDS: pantoprazole 40 MG vial IV SCH (07:53)
[2018-04-24] MEDS: furosemide 40mg/4ml inj IV SCH (07:53)
[2018-04-24] MEDS: montelukast 10mg tablet PO SCH (07:53)
[2018-04-24] MEDS: enoxaparin 40mg/0.4ml syringe SUBCUT SCH (07:54)
[2018-04-24] MEDS: Protein Shake (high protein) 240ml (8oz) cup PO SCH ×3 (08:00→18:00)
[2018-04-24] MEDS: lactose-reduced food (Ensure Enlive) - 237ml bottle PO SCH ×3 (08:00→18:00)
[2018-04-24] MEDS ORDERED: potassium Cl 20 mEq SR tablet PO PRN (08:25)
[2018-04-24] MEDS ORDERED: magnesium Cl slow-release 64mg tablet PO PRN (08:25)
[2018-04-24] MEDS ORDERED: magnesium 4gm in 100ml NS 100 ML IV PRN (08:25)
[2018-04-24] MEDS ORDERED: potassium Cl 40MEQ/NS 500ml 500 ML IV PRN ×2 (08:25)
[2018-04-24] MEDS: budesonide 0.5mg/2ml UD nebule IH SCH ×2 (09:33→21:26)
[2018-04-24 11:00] VITALS: BP 106/65
[2018-04-24] MEDS: LORazepam 2 mg/ml vial IV PRN ×2 (12:31→21:47)
[2018-04-24] MEDS: potassium Cl 20 mEq SR tablet PO PRN ×3 (14:40→23:39)
[2018-04-24 15:00] VITALS: BP 106/71
[2018-04-24 19:00] VITALS: BP 99/78
[2018-04-24] MEDS: furosemide 20 MG/2 ML vial IV SCH (19:55)
[2018-04-24 23:00] VITALS: BP 111/71
[2018-04-25] MEDS: piperacillin/tazo 3.375gm/50ml 50 ML IV SCH ×4 (01:44→19:48)
[2018-04-25] MEDS: morphine 10mg/0.5ml (conc. morphine) oral syringe PO PRN ×6 (02:22→22:48)
[2018-04-25] MEDS: ipratropium/albuterol 3ml nebule NEB SCH ×4 (02:27→20:23)
[2018-04-25 03:00] VITALS: BP 101/59
[2018-04-25 06:43] LABS: ALANINE AMINOTRANSFERASE 91 U/L (12-78); ALBUMIN 2.2 G/DL (3.4-5.0); ALBUMIN/GLOBULIN RATIO 0.9 (1.1-1.5); ALKALINE PHOSPHATASE 40 IU/L (46-116); ANION GAP 2 (8-16); ASPARTATE AMINO TRANSFERASE 28 U/L (10-37); BILIRUBIN,TOTAL 1.2 MG/DL (0.1-1.0); BLOOD UREA NITROGEN 27 MG/DL (7-18); BUN/CREATININE RATIO 30.7 (6.6-38.0); CALCIUM 7.6 MG/DL (8.5-10.1); CHLORIDE 100 MMOL/L (99-107); CREATININE 0.88 MG/DL (0.40-0.90); GLUCOSE 138 MG/DL (70-104); PHOSPHORUS 3.5 MG/DL (2.3-4.5); POTASSIUM 3.6 MMOL/L (3.5-5.1); SODIUM 140 MMOL/L (135-145); TOTAL CARBON DIOXIDE 37.6 MMOL/L (24-32); TOTAL PROTEIN 4.6 G/DL (6.4-8.2); eGFR 61 ML/MIN
[2018-04-25 07:03] VITALS: BP 106/66
[2018-04-25 07:10] LABS: BASOPHILS % (AUTO) 0 % (0-1); EOSINOPHILS % (AUTO) 0 % (0-6); HEMATOCRIT 38.8 % (35.0-45.0); HEMOGLOBIN 13.7 g/dl (12.0-16.0); LYMPHOCYTES # (AUTO) 0.2 X10'3 (1.1-4.8); LYMPHOCYTES % (AUTO) 1.2 % (21-51); MEAN CORPUSCULAR HEMOGLOBIN 31.6 PG (27.0-31.0); MEAN CORPUSCULAR HGB CONC 35.3 % (33.0-36.5); MEAN CORPUSCULAR VOLUME 89.6 FL (78-98); MEAN PLATELET VOLUME 9.1 FL (7.4-10.4); MONOCYTES # (AUTO) 1.1 X10'3 (0-0.9); MONOCYTES % (AUTO) 5.9 % (2-12); NEUTROPHILS # (AUTO) 16.8 X10'3 (1.8-7.7); NEUTROPHILS % (AUTO) 92.9 % (42-75); PLATELET COUNT 158 X10'3 (140-440); RED BLOOD COUNT 4.33 X10'6 (4.20-5.60); RED CELL DISTRIBUTION WIDTH 13.5 % (11.5-14.5); WHITE BLOOD COUNT 18.1 X10'3 (4.5-11.0)
[2018-04-25] MEDS: lactose-reduced food (Ensure Enlive) - 237ml bottle PO SCH ×3 (08:00→18:05)
[2018-04-25] MEDS: pantoprazole 40 MG vial IV SCH (08:11)
[2018-04-25] MEDS: enoxaparin 40mg/0.4ml syringe SUBCUT SCH (08:11)
[2018-04-25] MEDS: methylPREDNISolone sod succ/PF 40mg inj. IV SCH (08:12)
[2018-04-25] MEDS: lactobacillus rhamnosus 10,000 MMU CELLS/CAPSULE PO SCH ×2 (08:12→19:49)
[2018-04-25] MEDS: loratadine 10mg tablet PO SCH (08:12)
[2018-04-25] MEDS: montelukast 10mg tablet PO SCH (08:12)
[2018-04-25] MEDS: furosemide 20 MG/2 ML vial IV SCH ×2 (08:13→19:48)
[2018-04-25] MEDS: budesonide 0.5mg/2ml UD nebule IH SCH ×2 (08:13→20:24)
[2018-04-25] MEDS: diltiazem SR 60mg capsule (twice daily) PO SCH ×2 (08:16→20:01)
[2018-04-25] MEDS: Protein Shake (high protein) 240ml (8oz) cup PO SCH ×3 (08:27→18:05)
[2018-04-25 11:14] VITALS: BP 104/63
[2018-04-25 15:30] VITALS: BP 96/58
[2018-04-25 19:00] VITALS: BP 136/84
[2018-04-25] MEDS: ondansetron/PF 4mg/2ml inj IV PRN ×2 (21:00→21:56)
[2018-04-25] MEDS: magnesium hydroxide 30ml (MOM) UD suspension PO PRN (22:48)
[2018-04-25 23:00] VITALS: BP 120/79
[2018-04-26] VITALS (7 sets, daily range): BP systolic 91–122; BP diastolic 61–95
[2018-04-26] MEDS: LORazepam 2 mg/ml vial IV PRN ×2 (01:46→22:16)
[2018-04-26] MEDS: piperacillin/tazo 3.375gm/50ml 50 ML IV SCH ×3 (01:47→14:13)
[2018-04-26] MEDS: ondansetron/PF 4mg/2ml inj IV PRN (03:22)
[2018-04-26] MEDS: ipratropium/albuterol 3ml nebule NEB SCH ×4 (03:24→19:56)
[2018-04-26] MEDS: morphine 10mg/0.5ml (conc. morphine) oral syringe PO PRN ×2 (03:27→19:32)
[2018-04-26 05:48] LABS: BASOPHILS # (AUTO) 0.2 X10'3 (0-0.2); BASOPHILS % (AUTO) 0.7 % (0-1); EOSINOPHILS % (AUTO) 0.1 % (0-6); HEMOGLOBIN 15.4 g/dl (12.0-16.0); LYMPHOCYTES # (AUTO) 0.3 X10'3 (1.1-4.8); LYMPHOCYTES % (AUTO) 1.4 % (21-51); MEAN CORPUSCULAR HEMOGLOBIN 30.8 PG (27.0-31.0); MEAN CORPUSCULAR HGB CONC 34.1 % (33.0-36.5); MEAN CORPUSCULAR VOLUME 90.3 FL (78-98); MONOCYTES % (AUTO) 4.7 % (2-12); NEUTROPHILS # (AUTO) 20.7 X10'3 (1.8-7.7); NEUTROPHILS % (AUTO) 93.1 % (42-75); PLATELET COUNT 177 X10'3 (140-440); RED BLOOD COUNT 4.98 X10'6 (4.20-5.60); RED CELL DISTRIBUTION WIDTH 13.6 % (11.5-14.5); WHITE BLOOD COUNT 22.2 X10'3 (4.5-11.0)
[2018-04-26 06:20] LABS: ALANINE AMINOTRANSFERASE 90 U/L (12-78); ALBUMIN 2.6 G/DL (3.4-5.0); ALBUMIN/GLOBULIN RATIO 0.9 (1.1-1.5); ALKALINE PHOSPHATASE 50 IU/L (46-116); ANION GAP 4 (8-16); ASPARTATE AMINO TRANSFERASE 26 U/L (10-37); BILIRUBIN,TOTAL 1.5 MG/DL (0.1-1.0); BLOOD UREA NITROGEN 25 MG/DL (7-18); BUN/CREATININE RATIO 26.9 (6.6-38.0); CHLORIDE 95 MMOL/L (99-107); CREATININE 0.93 MG/DL (0.40-0.90); GLUCOSE 177 MG/DL (70-104); MAGNESIUM 2.1 MG/DL (1.5-2.4); PHOSPHORUS 4.3 MG/DL (2.3-4.5); POTASSIUM 3.9 MMOL/L (3.5-5.1); SODIUM 138 MMOL/L (135-145); TOTAL CARBON DIOXIDE 38.6 MMOL/L (24-32); TOTAL PROTEIN 5.5 G/DL (6.4-8.2); eGFR 58 ML/MIN
[2018-04-26] MEDS: lactose-reduced food (Ensure Enlive) - 237ml bottle PO SCH ×3 (08:00→18:06)
[2018-04-26] MEDS: pantoprazole 40 MG vial IV SCH (09:07)
[2018-04-26] MEDS: loratadine 10mg tablet PO SCH (09:08)
[2018-04-26] MEDS: montelukast 10mg tablet PO SCH (09:08)
[2018-04-26] MEDS: diltiazem SR 60mg capsule (twice daily) PO SCH ×2 (09:09→20:02)
[2018-04-26] MEDS: methylPREDNISolone sod succ/PF 40mg inj. IV SCH (09:10)
[2018-04-26] MEDS: furosemide 20 MG/2 ML vial IV SCH ×2 (09:10→19:53)
[2018-04-26] MEDS: budesonide 0.5mg/2ml UD nebule IH SCH ×2 (09:12→19:56)
[2018-04-26] MEDS: lactobacillus rhamnosus 10,000 MMU CELLS/CAPSULE PO SCH ×2 (09:26→19:52)
[2018-04-26] MEDS: enoxaparin 40mg/0.4ml syringe SUBCUT SCH (09:27)
[2018-04-26] MEDS: Protein Shake (high protein) 240ml (8oz) cup PO SCH ×3 (09:28→18:06)
[2018-04-26] MEDS ORDERED: normal saline 1000ml 1,000 ML IV ONE ×2 (15:15→16:00)
[2018-04-26 16:26] LABS: ABG BASE EXCESS 10.6 mmol/L (-2.0-3.0); ABG HCO3 37.4 mmol/L (22.0-26.0); ABG OXYGEN SATURATION 95.8 % (95-98); ABG PCO2 (T) 58.1 mmHg (32.0-45.0); ABG PH (T) 7.427 (7.350-7.450); ABG PO2 (T) 80.5 mmHg (83-108); ALLEN'S TEST Positive; FCOHb 1.1 % (0.5-1.5); FMetHb 0.3 % (0.3-1.12); FO2Hb 94.5 % (94-100); MINUTE VOLUME 8 L/min; RESPIRATORY RATE 14 b/min; RESPIRATORY RATE (OBSERVED) 21 b/min; TIDAL VOLUME 446 mL; TOTAL HEMOGLOBIN 15.1 G/dl (12.0-16.0)
[2018-04-26] MEDS: vancomycin/NS 1 GM ADD-VANTAGE 250 ML IV SCH (16:27)
[2018-04-26] MEDS: piperacillin/tazobactam inj. 2.25 GM in normal saline 50ml IV IV SCH (20:00)
[2018-04-27] MEDS: morphine 10mg/0.5ml (conc. morphine) oral syringe PO PRN (00:53)
[2018-04-27] MEDS: piperacillin/tazobactam inj. 2.25 GM in normal saline 50ml IV IV SCH ×4 (01:49→20:00)
[2018-04-27] MEDS: ipratropium/albuterol 3ml nebule NEB SCH ×4 (02:31→20:36)
[2018-04-27 03:00] VITALS: BP 94/64
[2018-04-27 04:12] LABS: MONOCYTES # (AUTO) 1.3 X10'3 (0-0.9); RED CELL DISTRIBUTION WIDTH 13.3 % (11.5-14.5)
[2018-04-27 04:25] LABS: ALANINE AMINOTRANSFERASE 75 U/L (12-78); ALBUMIN 2.3 G/DL (3.4-5.0); ALBUMIN/GLOBULIN RATIO 0.8 (1.1-1.5); ALKALINE PHOSPHATASE 48 IU/L (46-116); ANION GAP 1 (8-16); ASPARTATE AMINO TRANSFERASE 24 U/L (10-37); BILIRUBIN,TOTAL 1.5 MG/DL (0.1-1.0); BLOOD UREA NITROGEN 31 MG/DL (7-18); BUN/CREATININE RATIO 26.7 (6.6-38.0); CALCIUM 7.8 MG/DL (8.5-10.1); CHLORIDE 94 MMOL/L (99-107); CREATININE 1.16 MG/DL (0.40-0.90); GLUCOSE 169 MG/DL (70-104); LACTATE DEHYDROGENASE 322 U/L (81-234); MAGNESIUM 2.2 MG/DL (1.5-2.4); PHOSPHORUS 3.8 MG/DL (2.3-4.5); POTASSIUM 3.9 MMOL/L (3.5-5.1); SODIUM 137 MMOL/L (135-145); TOTAL PROTEIN 5.2 G/DL (6.4-8.2); eGFR 45 ML/MIN
[2018-04-27 04:42] LABS: BASOPHILS # (AUTO) 0.2 X10'3 (0-0.2); BASOPHILS % (AUTO) 0.9 % (0-1); EOSINOPHILS % (AUTO) 0.2 % (0-6); HEMOGLOBIN 14.5 g/dl (12.0-16.0); LYMPHOCYTES # (AUTO) 0.4 X10'3 (1.1-4.8); LYMPHOCYTES % (AUTO) 1.8 % (21-51); MEAN CORPUSCULAR HEMOGLOBIN 30.4 PG (27.0-31.0); MEAN CORPUSCULAR HGB CONC 33.8 % (33.0-36.5); MEAN PLATELET VOLUME 9.2 FL (7.4-10.4); MONOCYTES % (AUTO) 5.6 % (2-12); NEUTROPHILS # (AUTO) 21.8 X10'3 (1.8-7.7); NEUTROPHILS % (AUTO) 91.5 % (42-75); PLATELET COUNT 166 X10'3 (140-440); RED BLOOD COUNT 4.77 X10'6 (4.20-5.60); WHITE BLOOD COUNT 23.6 X10'3 (4.5-11.0)
[2018-04-27 05:29] LABS: PLATELET ESTIMATE NORMAL; TOTAL CELLS COUNTED 100
[2018-04-27 05:36] LABS: ABG HCO3 38.9 mmol/L (22.0-26.0); ABG OXYGEN SATURATION 96.5 % (95-98); ABG PCO2 (T) 52.9 mmHg (32.0-45.0); ABG PH (T) 7.485 (7.350-7.450); ABG PO2 (T) 76.7 mmHg (83-108); ALLEN'S TEST Positive; FCOHb 1.3 % (0.5-1.5); FMetHb 0.3 % (0.3-1.12); PATIENT TEMPERATURE 36.9; RESPIRATORY RATE 14 b/min; RESPIRATORY RATE (OBSERVED) 15 b/min; TOTAL HEMOGLOBIN 15.6 G/dl (12.0-16.0)
[2018-04-27 06:00] VITALS: BP 109/76
[2018-04-27] MEDS: budesonide 0.5mg/2ml UD nebule IH SCH ×2 (07:54→20:36)
[2018-04-27] MEDS: lactose-reduced food (Ensure Enlive) - 237ml bottle PO SCH ×3 (08:00→18:00)
[2018-04-27] MEDS: loratadine 10mg tablet PO SCH (08:16)
[2018-04-27] MEDS: lactobacillus rhamnosus 10,000 MMU CELLS/CAPSULE PO SCH ×2 (08:16→21:03)
[2018-04-27] MEDS: montelukast 10mg tablet PO SCH (08:17)
[2018-04-27] MEDS: furosemide 20 MG/2 ML vial IV SCH ×2 (08:17→21:23)
[2018-04-27] MEDS: diltiazem SR 60mg capsule (twice daily) PO SCH (08:17)
[2018-04-27] MEDS: methylPREDNISolone sod succ/PF 40mg inj. IV SCH (08:18)
[2018-04-27] MEDS: enoxaparin 40mg/0.4ml syringe SUBCUT SCH (08:23)
[2018-04-27] MEDS: pantoprazole 40 MG vial IV SCH (08:27)
[2018-04-27] MEDS: Protein Shake (high protein) 240ml (8oz) cup PO SCH ×3 (08:27→18:11)
[2018-04-27] MEDS: LORazepam 2 mg/ml vial IV PRN (09:29)
[2018-04-27 11:00] VITALS: BP 105/84
[2018-04-27 15:00] VITALS: BP 115/89
[2018-04-27] MEDS: vancomycin/NS 1 GM ADD-VANTAGE 250 ML IV SCH (16:12)
[2018-04-27 18:00] VITALS: BP 110/80
[2018-04-27] MEDS: diltiazem 30mg tablet PO SCH (21:25)
[2018-04-27 22:00] VITALS: BP 100/71
[2018-04-28 02:00] VITALS: BP 93/67
[2018-04-28] MEDS: ipratropium/albuterol 3ml nebule NEB SCH ×4 (02:14→20:11)
[2018-04-28] MEDS: piperacillin/tazobactam inj. 2.25 GM in normal saline 50ml IV IV SCH ×4 (02:39→20:13)
[2018-04-28 06:02] LABS: BASOPHILS % (AUTO) 0.1 % (0-1); EOSINOPHILS # (AUTO) 0.4 X10'3 (0-0.9); EOSINOPHILS % (AUTO) 1.8 % (0-6); HEMATOCRIT 41.1 % (35.0-45.0); HEMOGLOBIN 13.5 g/dl (12.0-16.0); LYMPHOCYTES # (AUTO) 0.4 X10'3 (1.1-4.8); LYMPHOCYTES % (AUTO) 2.2 % (21-51); MEAN CORPUSCULAR HEMOGLOBIN 29.9 PG (27.0-31.0); MEAN CORPUSCULAR HGB CONC 32.9 % (33.0-36.5); MEAN CORPUSCULAR VOLUME 90.9 FL (78-98); MEAN PLATELET VOLUME 8.9 FL (7.4-10.4); MONOCYTES % (AUTO) 4.8 % (2-12); NEUTROPHILS # (AUTO) 18.5 X10'3 (1.8-7.7); NEUTROPHILS % (AUTO) 91.1 % (42-75); PLATELET COUNT 161 X10'3 (140-440); RED BLOOD COUNT 4.52 X10'6 (4.20-5.60); RED CELL DISTRIBUTION WIDTH 14.4 % (11.5-14.5); WHITE BLOOD COUNT 20.3 X10'3 (4.5-11.0)
[2018-04-28 06:23] LABS: PLATELET ESTIMATE NORMAL; TOTAL CELLS COUNTED 100
[2018-04-28 06:34] LABS: ALBUMIN 2.4 G/DL (3.4-5.0); ANION GAP 2 (8-16); BLOOD UREA NITROGEN 31 MG/DL (7-18); BUN/CREATININE RATIO 30.4 (6.6-38.0); CALCIUM 7.8 MG/DL (8.5-10.1); CHLORIDE 95 MMOL/L (99-107); CREATININE 1.02 MG/DL (0.40-0.90); GLUCOSE 153 MG/DL (70-104); SODIUM 136 MMOL/L (135-145); TOTAL CARBON DIOXIDE 38.7 MMOL/L (24-32); eGFR 52 ML/MIN
[2018-04-28 07:00] VITALS: BP 101/70
[2018-04-28] MEDS: lactobacillus rhamnosus 10,000 MMU CELLS/CAPSULE PO SCH ×2 (07:52→20:13)
[2018-04-28] MEDS: loratadine 10mg tablet PO SCH (07:52)
[2018-04-28] MEDS: montelukast 10mg tablet PO SCH (07:54)
[2018-04-28] MEDS: diltiazem 30mg tablet PO SCH ×4 (07:54→20:13)
[2018-04-28] MEDS: methylPREDNISolone sod succ/PF 40mg inj. IV SCH (07:56)
[2018-04-28] MEDS: pantoprazole 40 MG vial IV SCH (07:58)
[2018-04-28] MEDS: lactose-reduced food (Ensure Enlive) - 237ml bottle PO SCH ×3 (08:00→18:00)
[2018-04-28] MEDS: furosemide 20 MG/2 ML vial IV SCH ×2 (08:01→20:13)
[2018-04-28] MEDS: enoxaparin 40mg/0.4ml syringe SUBCUT SCH (08:02)
[2018-04-28] MEDS: Protein Shake (high protein) 240ml (8oz) cup PO SCH ×3 (08:05→18:00)
[2018-04-28] MEDS: budesonide 0.5mg/2ml UD nebule IH SCH ×2 (10:44→20:11)
[2018-04-28 11:00] VITALS: BP 132/97
[2018-04-28] MEDS: LORazepam 2 mg/ml vial IV PRN (13:49)
[2018-04-28 15:00] VITALS: BP 119/73
[2018-04-28] MEDS: vancomycin/NS 1 GM ADD-VANTAGE 250 ML IV SCH (16:34)
[2018-04-28 19:00] VITALS: BP 110/72
[2018-04-28 23:00] VITALS: BP 109/66
[2018-04-29] MEDS: ipratropium/albuterol 3ml nebule NEB SCH ×4 (02:16→19:59)
[2018-04-29 02:35] LABS: BASOPHILS % (AUTO) 0 % (0-1); EOSINOPHILS # (AUTO) 0.4 X10'3 (0-0.9); EOSINOPHILS % (AUTO) 2.1 % (0-6); HEMATOCRIT 36.4 % (35.0-45.0); HEMOGLOBIN 12.1 g/dl (12.0-16.0); LYMPHOCYTES # (AUTO) 0.3 X10'3 (1.1-4.8); LYMPHOCYTES % (AUTO) 1.7 % (21-51); MEAN CORPUSCULAR HEMOGLOBIN 30.2 PG (27.0-31.0); MEAN CORPUSCULAR HGB CONC 33.3 % (33.0-36.5); MEAN CORPUSCULAR VOLUME 90.5 FL (78-98); MEAN PLATELET VOLUME 8.6 FL (7.4-10.4); MONOCYTES # (AUTO) 1.1 X10'3 (0-0.9); MONOCYTES % (AUTO) 5.4 % (2-12); NEUTROPHILS # (AUTO) 18.1 X10'3 (1.8-7.7); NEUTROPHILS % (AUTO) 90.8 % (42-75); PLATELET COUNT 144 X10'3 (140-440); RED BLOOD COUNT 4.02 X10'6 (4.20-5.60); RED CELL DISTRIBUTION WIDTH 14.3 % (11.5-14.5); WHITE BLOOD COUNT 19.9 X10'3 (4.5-11.0)
[2018-04-29 02:41] LABS: ALBUMIN 2.2 G/DL (3.4-5.0); ANION GAP 1 (8-16); BLOOD UREA NITROGEN 31 MG/DL (7-18); BUN/CREATININE RATIO 36.5 (6.6-38.0); CALCIUM 8.3 MG/DL (8.5-10.1); CHLORIDE 97 MMOL/L (99-107); CREATININE 0.85 MG/DL (0.40-0.90); GLUCOSE 167 MG/DL (70-104); POTASSIUM 3.6 MMOL/L (3.5-5.1); SODIUM 135 MMOL/L (135-145); eGFR 64 ML/MIN
[2018-04-29 03:00] VITALS: BP 93/73
[2018-04-29] MEDS: piperacillin/tazobactam inj. 2.25 GM in normal saline 50ml IV IV SCH ×4 (03:00→20:32)
[2018-04-29 04:49] LABS: PLATELET ESTIMATE NORMAL; TOTAL CELLS COUNTED 100
[2018-04-29 06:00] VITALS: BP 114/76
[2018-04-29] MEDS: loratadine 10mg tablet PO SCH (07:43)
[2018-04-29] MEDS: lactobacillus rhamnosus 10,000 MMU CELLS/CAPSULE PO SCH ×2 (07:43→20:32)
[2018-04-29] MEDS: furosemide 20 MG/2 ML vial IV SCH ×2 (07:43→20:33)
[2018-04-29] MEDS: methylPREDNISolone sod succ/PF 40mg inj. IV SCH (07:43)
[2018-04-29] MEDS: diltiazem 30mg tablet PO SCH ×4 (07:44→20:32)
[2018-04-29] MEDS: montelukast 10mg tablet PO SCH (07:44)
[2018-04-29] MEDS: pantoprazole 40 MG vial IV SCH (07:44)
[2018-04-29 07:47] LABS: HEMOGLOBIN A1C 6.1 % (4.5-6.2)
[2018-04-29] MEDS: enoxaparin 40mg/0.4ml syringe SUBCUT SCH (08:00)
[2018-04-29] MEDS: budesonide 0.5mg/2ml UD nebule IH SCH ×2 (08:16→19:59)
[2018-04-29] MEDS: lactose-reduced food (Ensure Enlive) - 237ml bottle PO SCH ×3 (08:17→18:00)
[2018-04-29] MEDS: Protein Shake (high protein) 240ml (8oz) cup PO SCH ×3 (08:17→18:00)
[2018-04-29 11:00] VITALS: BP 100/66
[2018-04-29 15:00] VITALS: BP 106/64
[2018-04-29] MEDS ORDERED: VANCOMYCIN LEVEL IV ONE (15:30)
[2018-04-29] MEDS: vancomycin/NS 1 GM ADD-VANTAGE 250 ML IV SCH (16:23)
[2018-04-29] MEDS ORDERED: vancomycin inj 500 MG in normal saline 100ml IV soln 100 ML IV ONE (18:00)
[2018-04-29 19:00] VITALS: BP 127/84
[2018-04-29] MEDS: LORazepam 2 mg/ml vial IV PRN (19:05)
[2018-04-29 23:00] VITALS: BP 127/78
[2018-04-30] MEDS: piperacillin/tazobactam inj. 2.25 GM in normal saline 50ml IV IV SCH ×3 (01:38→14:18)
[2018-04-30 02:35] LABS: BASOPHILS % (AUTO) 0 % (0-1); EOSINOPHILS # (AUTO) 0.4 X10'3 (0-0.9); EOSINOPHILS % (AUTO) 2.1 % (0-6); HEMATOCRIT 34.4 % (35.0-45.0); HEMOGLOBIN 11.3 g/dl (12.0-16.0); LYMPHOCYTES # (AUTO) 0.4 X10'3 (1.1-4.8); LYMPHOCYTES % (AUTO) 2.5 % (21-51); MEAN CORPUSCULAR HEMOGLOBIN 29.6 PG (27.0-31.0); MEAN CORPUSCULAR HGB CONC 32.7 % (33.0-36.5); MEAN CORPUSCULAR VOLUME 90.5 FL (78-98); MEAN PLATELET VOLUME 8.2 FL (7.4-10.4); MONOCYTES # (AUTO) 0.9 X10'3 (0-0.9); MONOCYTES % (AUTO) 5.3 % (2-12); NEUTROPHILS # (AUTO) 15.5 X10'3 (1.8-7.7); NEUTROPHILS % (AUTO) 90.1 % (42-75); PLATELET COUNT 141 X10'3 (140-440); RED CELL DISTRIBUTION WIDTH 14.2 % (11.5-14.5); WHITE BLOOD COUNT 17.2 X10'3 (4.5-11.0)
[2018-04-30] MEDS: ipratropium/albuterol 3ml nebule NEB SCH ×3 (02:37→15:17)
[2018-04-30 02:44] LABS: ANION GAP 1 (8-16); BLOOD UREA NITROGEN 26 MG/DL (7-18); BUN/CREATININE RATIO 38.2 (6.6-38.0); CALCIUM 7.6 MG/DL (8.5-10.1); CHLORIDE 95 MMOL/L (99-107); CREATININE 0.68 MG/DL (0.40-0.90); GLUCOSE 152 MG/DL (70-104); POTASSIUM 3.3 MMOL/L (3.5-5.1); SODIUM 135 MMOL/L (135-145); TOTAL CARBON DIOXIDE 39.1 MMOL/L (24-32); eGFR 83 ML/MIN
[2018-04-30 03:00] VITALS: BP 105/56
[2018-04-30 06:00] VITALS: BP 94/68
[2018-04-30] MEDS ORDERED: potassium Cl oral solution 20 MEQ/15 ML PO PRN ×2 (06:30)
[2018-04-30] MEDS ORDERED: magnesium Cl slow-release 64mg tablet PO PRN (06:30)
[2018-04-30] MEDS ORDERED: magnesium 1gm/100ml D5W IVPB 100 ML IV PRN (06:30)
[2018-04-30] MEDS ORDERED: potassium Cl 20 mEq SR tablet PO PRN ×2 (06:30)
[2018-04-30] MEDS ORDERED: potassium Cl 40MEQ/NS 500ml 500 ML IV PRN ×2 (06:30)
[2018-04-30] MEDS ORDERED: magnesium 4gm in 100ml NS 100 ML IV PRN (06:30)
[2018-04-30] MEDS: lactose-reduced food (Ensure Enlive) - 237ml bottle PO SCH ×2 (08:00→13:38)
[2018-04-30] MEDS: enoxaparin 40mg/0.4ml syringe SUBCUT SCH (08:00)
[2018-04-30] MEDS: Protein Shake (high protein) 240ml (8oz) cup PO SCH ×2 (08:00→13:38)
[2018-04-30] MEDS: montelukast 10mg tablet PO SCH (08:35)
[2018-04-30] MEDS: pantoprazole 40 MG vial IV SCH (08:35)
[2018-04-30] MEDS: lactobacillus rhamnosus 10,000 MMU CELLS/CAPSULE PO SCH (08:35)
[2018-04-30] MEDS: loratadine 10mg tablet PO SCH (08:35)
[2018-04-30] MEDS: diltiazem 30mg tablet PO SCH ×2 (08:35→14:18)
[2018-04-30] MEDS: methylPREDNISolone sod succ/PF 40mg inj. IV SCH (08:36)
[2018-04-30] MEDS: furosemide 20 MG/2 ML vial IV SCH (08:36)
[2018-04-30] MEDS: budesonide 0.5mg/2ml UD nebule IH SCH (08:37)
[2018-04-30 11:00] VITALS: BP 109/68
[2018-04-30] MEDS ORDERED: LIDOcaine 0.5% (5mg/ml) 50ml vial ONE (11:07)
[2018-04-30 15:00] VITALS: BP 122/74
[2018-05-03] MEDS ORDERED: VANCOMYCIN LEVEL IV ONE (15:30)
== END 2018-04-30 17:00 | DRG 189 ==
LOC: ER 18:52 → SUR 3N 23:03 → PCU 3S 04-15 21:00
PROVIDERS: ADMIT Hospitalist; ATTEND Family Medicine
PROC: 5A09457 Assistance with Respiratory Ventilation, 24-96 Consecutive Hours, Continuous Positive Airway Pressure (ICD-10-PCS; principal; 2018-04-15)
PROC: 3E02340 Introduction of Influenza Vaccine into Muscle, Percutaneous Approach (ICD-10-PCS; 2018-04-15)
PROC: 3E0234Z Introduction of Serum, Toxoid and Vaccine into Muscle, Percutaneous Approach (ICD-10-PCS; 2018-04-15)
PROC: 5A09357 Assistance with Respiratory Ventilation, Less than 24 Consecutive Hours, Continuous Positive Airway Pressure (ICD-10-PCS; 2018-04-21)
PROC: B32T1ZZ Computerized Tomography (CT Scan) of Left Pulmonary Artery using Low Osmolar Contrast (ICD-10-PCS; 2018-04-22)
PROC: B3201ZZ Computerized Tomography (CT Scan) of Thoracic Aorta using Low Osmolar Contrast (ICD-10-PCS; 2018-04-22)
PROC: B32S1ZZ Computerized Tomography (CT Scan) of Right Pulmonary Artery using Low Osmolar Contrast (ICD-10-PCS; 2018-04-22)
PROC: 5A09357 Assistance with Respiratory Ventilation, Less than 24 Consecutive Hours, Continuous Positive Airway Pressure (ICD-10-PCS; 2018-04-26)
PROC: 5A09357 Assistance with Respiratory Ventilation, Less than 24 Consecutive Hours, Continuous Positive Airway Pressure (ICD-10-PCS; 2018-04-27)
PROC: 5A09357 Assistance with Respiratory Ventilation, Less than 24 Consecutive Hours, Continuous Positive Airway Pressure (ICD-10-PCS; 2018-04-28)
PROC: 5A09357 Assistance with Respiratory Ventilation, Less than 24 Consecutive Hours, Continuous Positive Airway Pressure (ICD-10-PCS; 2018-04-29)
PROC: 5A09357 Assistance with Respiratory Ventilation, Less than 24 Consecutive Hours, Continuous Positive Airway Pressure (ICD-10-PCS; 2018-04-30)
DX: J96.21 Acute and chronic respiratory failure with hypoxia (principal); J69.0 Pneumonitis due to inhalation of food and vomit; E43 Unspecified severe protein-calorie malnutrition; J44.1 Chronic obstructive pulmonary disease with (acute) exacerbation; E87.2 Acidosis; I50.30 Unspecified diastolic (congestive) heart failure; J44.0 Chronic obstructive pulmonary disease with (acute) lower respiratory infection; G93.40 Encephalopathy, unspecified; K21.9 Gastro-esophageal reflux disease without esophagitis; I27.81 Cor pulmonale (chronic); I34.0 Nonrheumatic mitral (valve) insufficiency; E87.6 Hypokalemia; I49.9 Cardiac arrhythmia, unspecified; J20.9 Acute bronchitis, unspecified; Z96.651 Presence of right artificial knee joint; Z90.710 Acquired absence of both cervix and uterus; Z99.81 Dependence on supplemental oxygen; Z90.49 Acquired absence of other specified parts of digestive tract; Z23 Encounter for immunization; Z68.23 Body mass index [BMI] 23.0-23.9, adult
CPT/HCPCS: 36415; 36600; 71045; 71275; 76604; 80048; 80053; 80202; 81001; 82803; 82948; 83036; 83605; 83615; 83735; 84100; 84145; 84484; 85018; 85025; 85610; 85730; 87040; 87070; 87088; 90732; 92616; 93005; 93306; 94640; 94660; 94760; 96374; 96375; 97110; 97161; 97530; 99285; A6258; C9113; J1650; J1940; J2001; J2060; J2405; J2543; J2920; J2930; J3370; J3490; J7030; J7626; Q9967